=== PATIENT | male | born 1980 | race Hispanic/Latino ===

== ENCOUNTER 2018-08-03 01:16 | Emergency (ER) | payer SELFPAY ==
[2018-08-03] MEDS ORDERED: Mag-Al 1200 mg/1200 mg/30 ML UDCUP ONE (01:29)
[2018-08-03] MEDS ORDERED: Lidocaine Viscous Sol 2% 15 ml UD Cup ONE (01:29)
[2018-08-03 01:42] LABS: #Basophils 0.1 thou/uL (0.0-0.2); #Eosinphils 0.1 thou/uL (0.0-0.7); #Lymphocytes 3.4 thou/uL (1.20-3.40); #Monocytes 0.8 thou/uL (0.11-0.59); #Neutrophils 4.6 thou/uL (1.40-6.50); %Basophils 0.7 % (0.0-1.0); %Eosinophils 1.4 % (0.0-10.0); %Lymphocytes 38.2 % (21.0-51.0); %Monocytes 8.8 % (0.0-10.0); %Neutrophils 50.9 % (42.0-75.0); Hemoglobin 17.1 g/dL (14.0-18.0); Mean Corpuscular HGB CONC 34.6 g/dL (32.0-36.0); Mean Corpuscular Hemoglobin 31.2 pg (27.0-31.0); Mean Corpuscular Volume 90.2 fL (78.0-98.0); Mean Platelet Volume 7.5 fL (7.4-10.4); Platelet Count 304 thou/uL (130-400); RBC Distribution Width 12.7 % (11.5-14.5); Red Blood Cell (RBC) Count 5.49 mill/uL (4.70-6.10)
[2018-08-03 01:59] LABS: ALT (SGPT) 16 U/L (8-55); AST (SGOT) 21 U/L (5-34); Albumin 4.6 g/dL (3.5-5.0); Alcohol Less than 10 mg/dL (Less than 10); Alkaline Phosphatase 101 U/L (40-150); Anion Gap 14 mmol/L (10-20); BUN (Urea Nitrogen) 8 mg/dL (8.9-20.6); Bilirubin, Total 0.7 mg/dL (0.2-1.2); Calc. Creatinine Clearance 0 mL/min (70-130); Calcium 9.7 mg/dL (7.8-10.44); Carbon Dioxide 25 mmol/L (22-29); Chloride 101 mmol/L (98-107); Estimated GFR-MDRD Greater than 90; Globulin 3.7 g/dL (2.4-3.5); Glucose 105 mg/dL (70-105); Lipase 5 U/L (8-78); Potassium 3.9 mmol/L (3.5-5.1); Protein, Total 8.3 g/dL (6.0-8.3); Sodium 136 mmol/L (136-145)
[2018-08-03 02:04] LABS: CKMB 1.4 ng/mL (0-6.6); Troponin I Less than 0.010 ng/mL (< 0.028)
--- NOTE | 2018-08-03 07:59 | RAD ---
PORTABLE AP CHEST: Date: 08/03/18 HISTORY: Chest pain. COMPARISON: None available. FINDINGS: Cardiac silhouette and pulmonary vasculature are within normal limits. Lungs are clear. Osseous struc tures are intact. IMPRESSION: No acute cardiopulmonary process. POS: KEILY[facility]
--- NOTE | 2018-08-11 12:19 | EKG ---
Test Reason : CHEST PAIN Blood Pressure : / mmHG Vent. Rate : 099 BPM Atrial Rate : 099 BPM P-R Int : 126 ms QRS Dur : 082 ms QT Int : 344 ms P-R-T Axes : 069 041 048 degrees QTc Int : 441 ms Normal sinus rhythm Normal ECG Confirmed by SOLO SALDANA ([id number]), news videotape editor TAYLOR THAKKAR ([id number]) on 08/11/2018 12:18:57 PM Referred By: [facility] Confirmed By:SOLO SALDANA
== END 2018-08-03 02:12 | disposition home or self-care (01) ==
LOC: ERS 01:16
DX: R07.9 Chest pain, unspecified (principal)
CPT/HCPCS: 36415; 71045; 80053; 80307; 82553; 83690; 84484; 85025; 93005